=== PATIENT | female | born 1960 | race Caucasian/White ===

== ENCOUNTER → 2018-03-01 08:51 | Outpatient (CLI) | payer BC | END | disposition home or self-care (01) | LOC: D.US 08:51 | DX: R10.9 Unspecified abdominal pain (principal) ==

== ENCOUNTER → 2018-11-30 07:35 | Outpatient (CLI) | payer BC | END | disposition home or self-care (01) | LOC: D.NM 07:35 | DX: R10.11 Right upper quadrant pain (principal) ==